=== PATIENT | male | born 1985 | race Caucasian/White ===

== ENCOUNTER 2020-08-28 11:26 | Emergency (ER) | payer OTHER ==
[~2020-08-28] VITALS: Ht 167.6 cm; Wt 63.6 kg
[2020-08-28] MEDS ORDERED: ACETAMINOPHEN 325 MG TABLET PO ONE (12:15)
[2020-08-28 12:30] LABS: COVID AG,FIA SOURCE NASOPHARYNGEAL
[2020-08-28 14:30] VITALS: BP 108/66
== END 2020-08-28 15:06 | disposition home or self-care (01) ==
LOC: EMS 11:29
DX: R05 Cough (principal); M79.10 Myalgia, unspecified site; R68.83 Chills (without fever); Z20.822 Contact with and (suspected) exposure to COVID-19
CPT/HCPCS: 99283